=== PATIENT | female | born 1990 | race Caucasian/White ===

== ENCOUNTER 2024-08-26 21:26 | Emergency (ER) | payer SELFPAY ==
[2024-08-26 21:28] VITALS: BP 165/97; PULSE 113; RESP 18; TEMP 36.6; O2SAT 100; BMI 27.1
--- NOTE | 2024-08-26 21:35 | EKG12_ITS ---
Test Reason : EMA Blood Pressure : */* mmHG Vent. Rate : 90 BPM Atrial Rate : 90 BPM P-R Int : 142 ms QRS Dur : 80 ms QT Int : 350 ms P-R-T Axes : 81 68 45 degrees QTcB Int : 428 ms Normal sinus rhythm Normal ECG Confirmed by RADHA MARES, CELESTINE ([id number]), publication editor DONNA HOLLEY ([id number]) on 08/29/2024 6:55:41 AM Referred By: Confirmed By: CELESTINE GARCIA MD
--- NOTE | 2024-08-26 21:52 | RAD_ITS ---
EXAM: XR Chest, 1 View CLINICAL INDICATION: CHEST PAIN TECHNIQUE: Frontal view of the chest. COMPARISON: No relevant prior studies available. FINDINGS: LUNGS AND PLEURAL SPACES: Unremarkable. No consolidation. No pneumothorax. HEART: Unremarkable. No cardiomegaly. MEDIASTINUM: Unremarkable. Normal mediastinal contour. BONES/JOINTS: Unremarkable. No acute fracture. RAD/Chest 1 View (Portable) IMPRESSION: No acute cardiopulmonary process. Reading Location: [id number]
--- NOTE | 2024-08-26 22:05 | EDS_ITS ---
HPI History of Present Illness Chief Complaint: Chest Pain Informant: patient Narrative Narrative: 34-year-old female started having chest discomfort left side, felt like burning, pain, may be acidic maybe 30 or 40 minutes prior to arrival here, lasted for a total of 20 minutes and is now gone, but she also had sharp pains shooting down her left arm for several minutes. 1 when she felt like her heart was pounding not necessarily racing but when she checked her blood pressure on her wrist without feeling presyncopal or near syncopal, she said it was 66/30 and her heart rate was 120. She denies any recent illness. She is not a smoker, she has no cardiac risk factors and has no family members with heart disease that they know of in their 50s or younger. Never had this before. Discomfort is gone right now. She was not exerting herself at the time and she denies any pleuritic component. CVD Risk Factors: Negative for Hypertension, Diabetes, Hypercholesterolemia, Family History 1' </=55 or Smoking [facility] Medical History Marijuana use Ovarian cyst Panic attack Anxiety Home Medications ?Medication ?Instructions ?Recorded ?Last Taken ?Type NK 08/26/24 Unknown History Allergy/AdvReac Type Severity Reaction Status Date / Time prednisone Allergy Intermediate Hives Verified 08/26/24 21:45 Social History Smoking Status: Current some day smoker tobacco type: e-cigarettes ROS ROS ED Constitutional Constitutional ED: Denies chills or fever(s) Eyes Eyes: Denies change in vision or diplopia ENT ENT ED: Denies rhinorrhea or sore throat Cardiovascular Cardiovascular: Reports chest pain and radiating jaw, neck or arm pain; Denies palpitations Respiratory/Chest Respiratory/Chest: Denies cough or dyspnea Gastrointestinal Gastrointestinal: Denies abdominal pain, diarrhea, nausea or vomiting Genitourinary Genitourinary ED: Denies dysuria or hematuria Musculoskeletal Musculoskeletal: Denies back pain or neck pain Integumentary Denies abscess or rash Neurologic Neurologic: Denies headache(s), paresthesias or weakness Psychiatric Psychiatric: Reports anxiety; Denies suicidal thoughts EXAM Physical Exam Const Vital Signs: 08/26/24 21:28 08/26/24 21:43 08/26/24 21:47 Temperature 97.8 F Temperature Source Temporal Pulse Rate 113 H Respiratory Rate 18 Respiratory Pattern Normal Blood Pressure 165/97 H Blood Pressure Mean 119 Pulse Ox 100 Oxygen Delivery Method Room Air Room Air 08/26/24 22:28 08/26/24 23:00 08/26/24 23:30 Temperature Temperature Source Pulse Rate 84 79 71 Respiratory Rate 16 14 15 Respiratory Pattern Blood Pressure 127/81 H 122/67 H Blood Pressure Mean 96 85 Pulse Ox 97 98 100 Oxygen Delivery Method Room Air Room Air 08/26/24 23:45 08/27/24 00:00 Temperature Temperature Source Pulse Rate 81 72 Respiratory Rate 12 12 Respiratory Pattern Blood Pressure 126/72 H Blood Pressure Mean 87 Pulse Ox 98 99 Oxygen Delivery Method Room Air Positive well nourished and well developed General Appearance ED: well developed and NAD HEENT Reports moist mucous membranes normocephalic and atraumatic Eyes PERRL and EOMs intact bilaterally Neck full ROM and supple Resp normal respiratory effort and clear to auscultation bilaterally Cardio regular rate, regular rhythm and no murmurs Rate: Negative for tachycardic Peripheral Pulses: radial pulses present bilateral 2+ GI non-tender and non-distended Auscultation: normoactive bowel sounds Palpation: soft Back/Spine no CVA tenderness General Back: other FROM Extremity normal to inspection Extremity Narrative: No calf tenderness, palpable cords, pedal edema General Extremety ED: Negative for edema, pulses abnormal or tenderness General Extremity: Negative for edema or pulses abnormal Neuro oriented x3, CN's II-XII intact bilaterally and no sensory deficits noted Sensorium / Orientation: awake and alert Motor Exam: strength 5/5 throughout Psych Psych Narrative: A little anxious Skin no rashes or lesions noted and no wounds Heart Score History: Moderately Suspicious ECG: Normal Age: </= 45 years Risk Factors: No Risk Factors Troponin: </= Normal Limit Score: 1 MDM MDM MDM Narrative Medical decision making narrative: EKG is normal, patient is pain-free when it was done. We did 2 sequential troponin measurements, they are both negative/normal for a delta of 0, and her 1 view chest x-ray on my interpretation is normal. Patient remained asymptomatic, normal vital signs 126/72 last check, when she was initially here she was 165/97 which I suspect was probably due to her feeling very anxious and panicky which she admitted to. She is doing very well now she feels much better, I suspect this was probably esophageal in nature which we discussed, if she continues to have episodes I recommend following up with her doctor return to the ER she is comfortable with that plan. Lab Data Attestation: I reviewed the patient's lab results. Labs: Laboratory Results - last 24 hr 08/26/24 08/26/24 21:40 23:39 WBC 8.1 RBC 4.58 Hgb 13.4 Hct 39.3 MCV 85.8 MCH 29.3 MCHC 34.1 RDW Std Deviation 38.5 RDW Coeff of Carlos 12.3 Plt Count 326 MPV 9.8 Immature Gran % (Auto) 0.200 Neut % (Auto) 47.9 Lymph % (Auto) 40.9 [place] % (Auto) 7.9 Eos % (Auto) 2.7 Baso % (Auto) 0.4 Absolute Neuts (auto) 3.9 Absolute Lymphs (auto) 3.33 Nucleated RBC % 0 Sodium 141 Potassium 3.3 Chloride 104 Carbon Dioxide 23.0 Anion Gap 13 BUN 14 Creatinine 0.80 Estim Creat Clear Calc 113.13 Est GFR (MDRD) Non-Af 98 BUN/Creatinine Ratio 16.8 Glucose 95 Calcium 9.3 Troponin T High Sens < 6 Troponin T Hi Sens 2 Hr < 6 Radiography Diagnostic Testing: Clinical Impression(s) from Imaging Studies Chest X-Ray 08/26/24 21:52 IMPRESSION: No acute cardiopulmonary process. Reading Location: [facility] Rhythm Strip Rhythm Strip: Sinus Rhythm Rate: 89 Ectopy: None EKG Initial EKG: Attestation: I personally reviewed and interpreted this EKG as follows: Interpretation: Sinus Rhythm and No Acute Injury Pattern Comments: Nml axis & intervals; nml EKG Discharge Plan Triage Chief Complaint: Chest Pain Other Complaint: Anxiety ED Provider: Varghese Nowak Dx/Rx/DC Orders Clinical Impression: Chest pain, non-cardiac Instructions: ED Chest Pain, Noncardiac Prescriptions: No Action NK Primary Care Provider: Care Physician,No Primary Referrals: Doctor,Your [Non-Staff] - (or return to ER for persistent episode) Print Language: Occitan Disposition Disposition: Home, Self Care
[2024-08-26 22:13] LABS: Absolute Lymphocyte Count 3.33 X10^3/uL (0.83-4.51); Absolute Neutrophil Count 3.9 X10^3/uL (2.0-7.7); Basophil# 0.03 X10^3/uL; Basophil% 0.4 % (0-1); Eosinophil# 0.22 X10^3/uL; Eosinophils% 2.7 % (0-5); Hematocrit 39.3 % (37-47); Hemoglobin 13.4 g/dL (12.0-15.0); Lymphocyte # 3.33 X10^3/ul (0.83-4.51); Lymphocyte % 40.9 % (19-41); Mean Corp Hgb Conc 34.1 g/dL (32-36); Mean Corpuscular Hgb 29.3 pg (27.0-32.0); Mean Corpuscular Volume 85.8 fL (81-99); Mean Platelet Vol. 9.8 fl (6.2-12.0); Monocyte# 0.64 X10^3/uL; Monocyte% 7.9 % (0-10); NRBC Flagged by Analyzer 0 % (0-5); Neutrophil % 47.9 % (47-70); Platelet Count 326 K/mm3 (150-450); RBC Distribution Width CV 12.3 % (11.6-14.6); RBC Distribution Width SD 38.5 fl (35.1-43.9); Red Blood Count 4.58 M/mm3 (4.2-5.4); White Blood Count 8.1 K/mm3 (4.4-11.0)
[2024-08-26 22:28] VITALS: BP 127/81; PULSE 84; RESP 16; O2SAT 97
[2024-08-26 22:37] LABS: Anion Gap 13 (5-15); BUN 14 mg/dL (4-19); BUN/Creat Ratio 16.8 RATIO (10-20); Calcium,Total 9.3 mg/dL (7.6-11.0); Chloride 104 mmol/L (98-108); EST Glomerular Filtration Rate 98 (>60); Estimated Creatinine Clearance 113.13 ml/min (50-250); Glucose 95 mg/dL (70-99); Potassium 3.3 mmol/L (3.3-5.1); Sodium Level 141 mmol/L (133-145); Troponin T High Sensitivity < 6 ng/L (<=14)
[2024-08-26 23:00] VITALS: BP 122/67; PULSE 79; RESP 14; O2SAT 98
[2024-08-26 23:30] VITALS: PULSE 71; RESP 15; O2SAT 100
[2024-08-26 23:45] VITALS: PULSE 81; RESP 12; O2SAT 98
[2024-08-27] VITALS: BP 126/72; PULSE 72; RESP 12; O2SAT 99
[2024-08-27 00:09] LABS: Troponin T High Sens 2 HR < 6 ng/L (<=14)
[2024-08-27 00:41] VITALS: BP 124/72; PULSE 60; RESP 12; TEMP 36.6; O2SAT 100
== END 2024-08-27 00:42 | disposition home or self-care (01) ==
PROVIDERS: Emergency Provider Emergency Medicine; Visit Provider Emergency Medicine
DX: R07.89 Other chest pain (principal); F17.290 Nicotine dependence, other tobacco product, uncomplicated
CPT/HCPCS: 71045; 80048; 84484; 85025; 93005; 99285; A4216

== ENCOUNTER → 2024-09-15 | Outpatient (CLI) | payer OTHER, SELFPAY ==
[2024-09-20 10:08] LABS: HPV APTIMA, High Risk Negative (Negative)
== END | disposition home or self-care (01) ==
LOC: LABSPEC 14:10
PROVIDERS: PCP Nurse Practitioner Family; Visit Provider Nurse Practitioner Family
DX: Z12.4 Encounter for screening for malignant neoplasm of cervix (principal)
CPT/HCPCS: 87624; 88175; G0145

== ENCOUNTER → 2024-10-04 | Outpatient (CLI) | payer OTHER, SELFPAY ==
--- NOTE | 2024-10-04 13:58 | BI_ITS ---
EXAM: DIAG MAMM W/CAD, BILAT 10/04/2024 CLINICAL HISTORY: F, Age 34 y/o , LEFT BREAST TENDERNESS TECHNIQUE: DIAG MAMM W/CAD, BILAT. COMPARISON: Baseline examination. FINDINGS: TISSUE DENSITY: The breasts are heterogeneously dense, which may obscure small masses. Bilateral Breast Mammographic Findings: No significant masses, calcifications or other abnormalities are identified. No suspicious masses, areas of developing architectural distortion, or suspicious calcifications. BI/DIAG MAMM W/CAD, BILAT IMPRESSION: No mammographic abnormality is seen. With the patient's history of pain in the upper inner quadrant of the left breast, targeted ultrasound correlation recommended. OVERALL FINAL ASSESSMENT BI-RADS 0: INCOMPLETE - NEED ADDITIONAL IMAGING EVALUATION. RECOMMENDATION: Ultrasound Recommended A letter with findings and recommendations will be mailed to the patient. Reading Location: [id number]
--- NOTE | 2024-10-04 13:58 | US_ITS ---
PROCEDURE: BREAST LIMITED UNILATERAL N/A REASON FOR EXAM: F, Age 34 y/o , LEFT BREAST TENDERNESS COMPARISON: Prior mammogram done earlier in the day.. TECHNIQUE: BREAST LIMITED UNILATERAL FINDINGS: The upper inner quadrant of the left breast was examined with ultrasound. Homogeneous fibroglandular tissue. No sonographic abnormality is seen. US/Breast Limited Unilateral IMPRESSION: No sonographic abnormality is seen. BI-RADS 1: NEGATIVE RECOMMENDATION: Routine annual follow-up in 1 Year Reading Location: [id number]
--- NOTE | 2024-10-04 13:58 | BI_ITS ---
EXAM: DIAG MAMM W/CAD, BILAT 10/04/2024 CLINICAL HISTORY: F, Age 34 y/o , LEFT BREAST TENDERNESS TECHNIQUE: DIAG MAMM W/CAD, BILAT. COMPARISON: Baseline examination. FINDINGS: TISSUE DENSITY: The breasts are heterogeneously dense, which may obscure small masses. Bilateral Breast Mammographic Findings: No significant masses, calcifications or other abnormalities are identified. No suspicious masses, areas of developing architectural distortion, or suspicious calcifications. BI/DIAG MAMM W/CAD, BILAT IMPRESSION: No mammographic abnormality is seen. With the patient's history of pain in the upper inner quadrant of the left breast, targeted ultrasound correlation recommended. OVERALL FINAL ASSESSMENT BI-RADS 0: INCOMPLETE - NEED ADDITIONAL IMAGING EVALUATION. RECOMMENDATION: Ultrasound Recommended A letter with findings and recommendations will be mailed to the patient. Reading Location: [id number]
--- NOTE | 2024-10-04 13:58 | US_ITS ---
PROCEDURE: BREAST LIMITED UNILATERAL N/A REASON FOR EXAM: F, Age 34 y/o , LEFT BREAST TENDERNESS COMPARISON: Prior mammogram done earlier in the day.. TECHNIQUE: BREAST LIMITED UNILATERAL FINDINGS: The upper inner quadrant of the left breast was examined with ultrasound. Homogeneous fibroglandular tissue. No sonographic abnormality is seen. US/Breast Limited Unilateral IMPRESSION: No sonographic abnormality is seen. BI-RADS 1: NEGATIVE RECOMMENDATION: Routine annual follow-up in 1 Year Reading Location: [id number]
--- OUTSIDE RECORDS SUMMARY | 2024-10-04 21:48 | XMS RPT_ITS | CCD ---
Author Organization [facility] ion Partnership [facility] Care Team Providers Care After School Teacher Name Role Phone Eliu MARES, Dr. Kwong Emergency Provider Care Physician, No Primary Primary Care Provider Unavailable Dr. Varghese Nowak MD Attending Provider Rachel OUTREACH REP-C, Mara Primary Care Provider Rachel OUTREACH REP-C, Mara Attending Provider Mara Ramos Primary Care Unavailable Mara Ramos Attending Unavailable Varghese Nowak Attending Unavailable Care Physician, No Primary Primary Care Unava ilable Mara Ramos Primary Care Unavailable Mara Ramos Attending Unavailable Mara Ramos Referring Unavailable Allergies Allergy Classification Reported Allergen(s) Allergy Type Date of Onset Reaction(s) Facility (2 sources) predniSONE Drug Allergy 08-26-2024 [facility] (1 source) predniSONE Drug Allergy 08-26-2024 [facility] Repository Problems Problem Classification Problem Date Documented Da te Episodic/Chronic Nonmalignant breast conditions (1 source) Mastodynia; Translations: [Mastodynia] Onset: 09-30-2024 Episodic Nonspecific chest pain (3 sources) Non-cardiac chest pain; Translations: [Other chest pain] Onset: 08-31-2024 08-27-2024 Episodic Other screening for suspected conditions (not mental disorders or infectious disease) (1 source) Encounter for screening for malignant neoplasm of cervix; Translations: [Encounter for screening for malignant neoplasm of cervix] Onset: 09-20-2024 Episodic Unclassified (2 sources) or return to ER for persistent episode Results Test Name Value Interpretation Reference Range Facility PAP IG HPV APTIMA 16/18,45on 09-20-2024 ADEQ Comment Normal . [facility] Comment on above: Order Comment: Speci men Comment: [id number] Specimen Comment: No. of containers..01 ThinPrep Vial Result Comment: Sati sfactory for evaluation. Endocervical and/or squamous metaplastic cells (endocervical component) are present. Performed By: #### L 3410.9992, L7400.0280 #### [facility] Laboratory [address] [place], [place], [id number] COMM . Normal . [facility] Comment on above: Order Comment: Speci men Comment: [id number] Specimen Comment: No. of containers..01 ThinPrep Vial Performed By: #### L 3410.9992, L7400.0280 #### [facility] Laboratory [address] [place], [address] COMMENT Comment Normal . [facility] Comment on above: Order Comment: Speci men Comment: [id number] Specimen Comment: No. of containers..01 ThinPrep Vial Result Comment: This liquid based ThinPrep(R) pap test was screened with the use of an image guided system. Performed By: #### L 3410.9992, L7400.0280 #### [facility] Laboratory [address] [place], [address] DIAG Comment Normal . [facility] Comment on above: Order Comment: Speci men Comment: [id number] Specimen Comment: No. of containers..01 ThinPrep Vial Result Comment: NEGA TIVE FOR INTRAEPITHELIAL LESION OR MALIGNANCY. Performed By: #### L 3410.9992, L7400.0280 #### [facility] Laboratory [address] [place], [address] HPV APTIMA, HR Negative Normal Negative [facility] Comment on above: Order Comment: Speci men Comment: [id number] Specimen Comment: No. of containers..01 ThinPrep Vial Result Comment: This nucleic acid amplification test detects fourteen high- risk HPV types (16,18,31,33,35,39,45,51,52,56,58,59,66,68) without differentiation. Performed By: #### L 3410.9992, L7400.0280 #### [facility] Laboratory [address] [place], [place], [address] HPV Alondra Rfx Comment Normal . [facility] Comment on above: Order Comment: Speci men Comment: [id number] Specimen Comment: No. of containers..01 ThinPrep Vial Result Comment: Crit eria not met, HPV Genotype not performed. Performed at: - [facility] [id number] Through Freight Engineer: Elizabeth Sanchez MD, Phone: [phone] Performed at: = - [facility] [id number] Through Freight Engineer: Elizabeth Sanchez MD, Phone: [phone] Performed By: #### L 3410.9992, L7400.0280 #### [facility] Laboratory [address] [place], [address] PAPSMR Comment Normal . [facility] Comment on above: Order Comment: Speci men Comment: [id number] Specimen Comment: No. of containers..01 ThinPrep Vial Result Comment: The Pap smear is a screening test designed to aid in the detection of premalignant and malignant conditions of the uterine cervix. It is not a diagnostic procedure and should not be used as the sole means of detecting cervical cancer. Both false-positive and false-negative reports do occur. Performed By: #### L 3410.9992, L7400.0280 #### [facility] Laboratory [address] [place], [place], [address] PERFORM Comment Normal . [facility] Comment on above: Order Comment: Speci men Comment: [id number] Specimen Comment: No. of containers..01 ThinPrep Vial Result Comment: Abby Nix, Fly Finisher (ASCP) Performed By: #### L 3410.9992, L7400.0280 #### [facility] Laboratory [address] [place], [place], [address] L3410.9992on 09-19-2024 [facility] COMMENT Normal . [facility] Comment on above: Order Comment: BRITANY ORTEZ-RMT [id number] NUAB VG+ Result Comment: Test Ordered: [id number] NuSwab Vaginitis Plus (VG+) Test(s) 489878- Atopobium vaginae; 281712- BVAB 2; 077386- Megasphaera 1 was developed and its performance characteristics determined by [facility]. It has not been cleared or approved by the Food and Drug Administration. Test(s) 869816-Ygghgxv albicans, EDGAR; 565956- Sally glabrata, EDGAR was developed and its performance characteristics determined by [facility]. It has not been cleared or approved by the Food and Drug Administration. Atopobium vaginae Low - 0 Score =G Reference Range: . BVAB 2 Low - 0 Score =G Reference Range: . Megasphaera 1 Low - 0 Score =G Reference Range: . Calculate total score by adding the 3 individual bacterial vaginosis (BV) marker scores together. Total score is interpreted as follows: Total score 0-1: Indicates the absence of BV. Total score 2: Indeterminate for BV. Additional clinical data should be evaluated to establish a diagnosis. Total score 3-6: Indicates the presence of BV. Sally albicans, EDGAR Negative =G Reference Range: Negative Sally glabrata, EDGAR Negative =G Reference Range: Negative Trich vag by EDGAR Negative =G Reference Range: Negative Chlamydia trachomatis, EDGAR Negative =G Reference Range: Negative Neisseria gonorrhoeae, EDGAR Negative =G Reference Range: Negative Performed at: =G - [facility] [id number] Through Freight Engineer: Elizabeth Sanchez MD, Phone: [phone] Performed at: - [facility] [id number] Through Freight Engineer: Liam Lovell PhD, Phone: [phone] Performed By: #### L 3410.9992, L7400.0280 #### [facility] Laboratory [address] [place], [place], [address] Cervical or vaginal specimen microscopic examination by liquid based cytology (reportOrdered By: Mara Ramos on 09-15-2024 Cytology report Cyto stain.thin prep Doc (Cvx/Vag) Comment . [facility] Comment on above: Criteria not met, HP V Genotype not performed.Performed at: - [facility] [id number] Director: Elizabeth Sanchez MD, Phone: [phone] at: = - [facility] [id number] Director: Elizabeth Sanchez MD, Phone: [phone] Cervical or vagninal specime n microscopic examination by cytology stain (reported asOrdered By: Mara Ramos on 09-15-2024 Cytology report Cyto stain Doc (Cvx/Vag) Comment . [facility] Comment on above: The Pap smear is a s creening test designed to aid in thedetection of premalignant and malignant conditions of theuterine cervix. It is not a diagnostic procedure andshould not be used as the sole means of detecting cervicalcancer. Both false-positive and false-negative reports dooccur. Detection in cervical specim en of any of human papilloma virus (HPV) 16, 18, 31, 33,Ordered By: Mara Ramos on 09-15-2024 HPV 16+18+31+33+35+39+45+51+ 52+56+58+59+66+68 DNA Probe+sig amp Ql (Cvx) Negative Negative [facility] Comment on above: This nucleic acid am plification test detects fourteen high-risk HPV types (16,18,31,33,35,39,45,51,52,56,58,59,66,68)without differentiation. Laboratory - CytologyOrdered By: Mara Raoms on 09-15-2024 Fly Finisher Cyto stain Nom (Cvx/Vag) [ID] Comment . [facility] Comment on above: Elza Nix Cytol ogist (ASCP) Laboratory - Miscellaneous t estsOrdered By: Mara Ramos on 09-15-2024 Service comment (Unsp spec) [Interp] . . [facility] No Panel InformationOrdered By: Mara Ramos on 09-15-2024 Pap Smear Specimen Adequacy Comment . [facility] Comment on above: Satisfactory for carlos luation. Endocervical and/or squamous metaplasticcells (endocervical component) are present. L499.0042on 08-27-2024 Trop T High Sen < 6 Normal <=14 [facility] Comment on above: Performed By: #### L 499.0042 #### [facility] Laboratory [address] [place], [address] L499.0043on 08-27-2024 Trop T High Sen Normal <=14 [facility] Comment on above: Result Comment: Canc elled via OM: Order cancelled - Patient discharged Performed By: #### L 499.0043 #### [facility] Laboratory [address] [place], [address] 12 Lead EKGon 08-26-2024 12 Lead EKG [facility] Cardiovascular Services [address] [place] [address] 12 Lead EKG 08/26/24 2147 MR#: [id number] Acct: [id number] Name: ANASTASIIA GUTIERREZ Rep #: [id number] : 1990 34 From: Veronika Garcia MD Attending Dr: Status: DEP ER Ordering Dr: Varghese Nowak MD Date: 08/26/24 Location: ED Sex: F C Admitted: Test Reason : EMA Blood Pressure : */* mmHG Vent. Rate : 90 BPM Atrial Rate : 90 BPM P-R Int : 142 ms QRS Dur : 80 ms QT Int : 350 ms P-R-T Axes : 81 68 45 degrees QTcB Int : 428 ms Normal sinus rhythm Normal ECG Confirmed by RADHA MARES, CELESTINE ([id number]), managing editor DONNA HOLLEY ([id number]) on 08/29/2024 6:55:41 AM Referred By: Confirmed By: CELESTINE GARCIA MD 08/29/24 0655 Date Veronika Garcia MD CC: Dr. Varghese Nowak MD; No Primary Care Physician Signed Normal [facility] Absolute lymphocyte countOrd ered By: Varghese Nowak on 08-26-2024 Lymphocytes Auto (Unsp spec) [#/Vol] 3.33 10*3/uL 0.83-4.51 [facility] Absolute neutrophil countOrd ered By: Varghese Nowak on 08-26-2024 Neutrophils (Bld) [#/Vol] 3.9 10*3/uL 2.0-7.7 [facility] Anion gap in Serum or Plasma Ordered By: Varghese Nowak on 08-26-2024 Anion gap [Moles/Vol] 13 mmol/L - [facility] Automated lymphocyte count a s percentage of total leukocytesOrdered By: Varghese Nowak on 08-26-2024 Lymphocytes/100 WBC Auto (Unsp spec) 40.9 % [facility] BUN/creatinine ratioOrdered By: Varghese Nowak on 08-26-2024 Urea nitrogen/Creatinine [Mass ratio] 16.8 mg/mg - [facility] Basic Metabolic Profile (BMP )on 08-26-2024 BUN/CRE 16.8 RATIO Normal - [facility] Comment on above: Performed By: #### L 100.0100, L500.2500, L501.4021 #### [facility] Laboratory [address] [place], [address] Calcium [Mass/Vol] 9.3 mg/dL Normal 7.6-11.0 [facility] Comment on above: Performed By: #### L 100.0100, L500.2500, L501.4021 #### [facility] Laboratory [address] [place], [address] Chloride [Moles/Vol] 104 mmol/L Normal 98-108 [facility] Comment on above: Performed By: #### L 100.0100, L500.2500, L501.4021 #### [facility] Laboratory [address] [place], [address] CO2 [Moles/Vol] 23.0 mmol/L Normal 21.0-32.0 [facility] Comment on above: Performed By: #### L 100.0100, L500.2500, L501.4021 #### [facility] Laboratory [address] [place], [address] Creatinine [Mass/Vol] 0.80 mg/dL Normal 0.70-1.20 [facility] Comment on above: Performed By: #### L 100.0100, L500.2500, L501.4021 #### [facility] Laboratory [address] [place], [address] ECRCL 113.13 ml/min Normal 50-250 [facility] Comment on above: Performed By: #### L 100.0100, L500.2500, L501.4021 #### [facility] Laboratory [address] [place], [address] GAP 13 Normal 5-15 [facility] Comment on above: Performed By: #### L 100.0100, L500.2500, L501.4021 #### [facility] Laboratory [address] [place], [address] GFR/1.73 sq M.predicted among non-blacks MDRD (S/P/Bld) [Vol rate/Area] 98 mL/min/{1.73_m2} Normal >60 [facility] Comment on above: Result Comment: mL/m in/1.73m2 CKD-EPI Creatinine Equation (2020) Performed By: #### L 100.0100, L500.2500, L501.4021 #### [facility] Laboratory [address] [place], [address] Glucose [Mass/Vol] 95 mg/dL Normal 70-99 [facility] Comment on above: Performed By: #### L 100.0100, L500.2500, L501.4021 #### [facility] Laboratory [address] [place], [address] Potassium [Moles/Vol] 3.3 mmol/L Normal 3.3-5.1 [facility] Comment on above: Performed By: #### L 100.0100, L500.2500, L501.4021 #### [facility] Laboratory [address] [place], [address] Sodium [Moles/Vol] 141 mmol/L Normal 133-145 [facility] Comment on above: Performed By: #### L 100.0100, L500.2500, L501.4021 #### [facility] Laboratory [address] [place], [address] Urea nitrogen [Mass/Vol] 14 mg/dL Normal 4-19 [facility] Comment on above: Performed By: #### L 100.0100, L500.2500, L501.4021 #### [facility] Laboratory [address] [place], [address] Basophil percentageOrdered B y: Varghese Nowak on 08-26-2024 Basophils/100 WBC (Bld) 0.4 % 0-1 [facility] CBC W/Diff, Automatedon Absolute Lymph 3.33 X10 3/uL Normal 0.83-4.51 [facility] Comment on above: Performed By: #### L 100.0100, L500.2500, L501.4021 #### [facility] Laboratory [address] [place], [address] Absolute Neut 3.9 X10 3/uL Normal 2.0-7.7 [facility] Comment on above: Performed By: #### L 100.0100, L500.2500, L501.4021 #### [facility] Laboratory [address] [place], [address] Basophils/100 WBC (Bld) 0.4 % Normal 0-1 [facility] Comment on above: Performed By: #### L 100.0100, L500.2500, L501.4021 #### [facility] Laboratory [address] [place], [address] Eosinophils/100 WBC (Bld) 2.7 % Normal 0-5 [facility] Comment on above: Performed By: #### L 100.0100, L500.2500, L501.4021 #### [facility] Laboratory [address] [place], [address] Erythrocyte distribution width (RBC) [Ratio] 12.3 % Normal 11.6-14.6 [facility] Comment on above: Performed By: #### L 100.0100, L500.2500, L501.4021 #### [facility] Laboratory [address] [place], [address] Hematocrit (Bld) [Volume fraction] 39.3 % Normal 37-47 [facility] Comment on above: Performed By: #### L 100.0100, L500.2500, L501.4021 #### [facility] Laboratory [address] [place], [address] Hemoglobin (Bld) [Mass/Vol] 13.4 g/dL Normal 12.0-15.0 [facility] Comment on above: Performed By: #### L 100.0100, L500.2500, L501.4021 #### [facility] Laboratory [address] [place], [address] IG% 0.200 Normal 0.0-0.9 [facility] Comment on above: Result Comment: IG% - Immature Granulocytes (promyelocytes, myelocytes and metamyelocytes) > 1% indicates that a LEFT SHIFT is Present. Performed By: #### L 100.0100, L500.2500, L501.4021 #### [facility] Laboratory [address] [place], [address] Lymphocytes/100 WBC (Bld) 40.9 % Normal 19-41 [facility] Comment on above: Performed By: #### L 100.0100, L500.2500, L501.4021 #### [facility] Laboratory [address] [place], [address] MCH (RBC) [Entitic mass] 29.3 pg Normal 27.0-32.0 [facility] Comment on above: Performed By: #### L 100.0100, L500.2500, L501.4021 #### [facility] Laboratory [address] [place], [address] MCHC (RBC) [Mass/Vol] 34.1 g/dL Normal 32-36 [facility] Comment on above: Performed By: #### L 100.0100, L500.2500, L501.4021 #### [facility] Laboratory [address] [place], [address] MCV (RBC) [Entitic vol] 85.8 fL Normal 81-99 [facility] Comment on above: Performed By: #### L 100.0100, L500.2500, L501.4021 #### [facility] Laboratory [address] [place], [address] Monocytes/100 WBC (Bld) 7.9 % Normal 0-10 [facility] Comment on above: Performed By: #### L 100.0100, L500.2500, L501.4021 #### [facility] Laboratory [address] [place], [address] Neutrophils/100 WBC (Bld) 47.9 % Normal 47-70 [facility] Comment on above: Performed By: #### L 100.0100, L500.2500, L501.4021 #### [facility] Laboratory [address] [place], [address] Nucleated RBC (Bld) [#/Vol] 0 10*3/uL Normal 0-5 [facility] Comment on above: Performed By: #### L 100.0100, L500.2500, L501.4021 #### [facility] Laboratory [address] [place], [address] Platelet mean volume (Bld) [Entitic vol] 9.8 fL Normal 6.2-12.0 [facility] Comment on above: Performed By: #### L 100.0100, L500.2500, L501.4021 #### [facility] Laboratory [address] [place], [address] Platelets (Bld) [#/Vol] 326 10*3/uL Normal 150-450 [facility] Comment on above: Performed By: #### L 100.0100, L500.2500, L501.4021 #### [facility] Laboratory [address] [place], [address] RBC (Bld) [#/Vol] 4.58 10*6/uL Normal 4.2-5.4 [facility] Comment on above: Performed By: #### L 100.0100, L500.2500, L501.4021 #### [facility] Laboratory [address] [place], [address] RDW SD 38.5 fl Normal 35.1-43.9 [facility] Comment on above: Performed By: #### L 100.0100, L500.2500, L501.4021 #### [facility] Laboratory [address] [place], [address] WBC (Bld) [#/Vol] 8.1 10*3/uL Normal 4.4-11.0 [facility] Comment on above: Performed By: #### L 100.0100, L500.2500, L501.4021 #### [facility] Laboratory [address] [place], [address] Carbon dioxide, total [Moles /volume] in Central venous bloodOrdered By: Varghese Nowak on 08-26-2024 CO2 [Moles/Vol] 23.0 mmol/L 21.0-32.0 [facility] Chest 1 View (Portable)on Chest 1 View (Portable) [facility] Imaging Services [address] [place] [address] Chest 1 View (Portable) MR#: [id number] Acct: [id number] Name: ANASTASIIA GUTIERREZ Rep #: [id number] : 1990 F 34 From: Lewis Castellano MD PCP: NOT,DEFINED Status: PRE ER Study: Chest 1 View (Portable) Date of Exam: 08/26/24 Exam# [id number] Ordering Dr: Varghese Nowak MD EXAM: XR Chest, 1 View CLINICAL INDICATION: CHEST PAIN TECHNIQUE: Frontal view of the chest. COMPARISON: No relevant prior studies available. FINDINGS: LUNGS AND PLEURAL SPACES: Unremarkable. No consolidation. No pneumothorax. HEART: Unremarkable. No cardiomegaly. MEDIASTINUM: Unremarkable. Normal mediastinal contour. BONES/JOINTS: Unremarkable. No acute fracture. RAD/Chest 1 View (Portable) IMPRESSION: No acute cardiopulmonary process. Reading Location: [facility] ER CC: DEFINED NOT; Dr. 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 Normal [facility] Chloride assayOrdered By: Dalila Nowak on 08-26-2024 Chloride [Moles/Vol] 104 mmol/L 98-108 [facility] Emergency Department Summary on 08-26-2024 Emergency Department Summary [facility] Medical Records Department [address] [place] [address] Emergency Department Summary 08/26/24 MR#: [id number] Acct: [id number] Name: ANASTASIIA GUTIERREZ Rep #: [id number] : 1990 34 From: Varghese Nowak MD PCP: Care Physician,No Primary Status:REG ER Location: ED HPI History of Present Illness Chief Complaint: Chest Pain Informant: patient Narrative Narrative: 34-year-old female started having chest discomfort left side, felt like burning, pain, may be acidic maybe 30 or 40 minutes prior to arrival here, lasted for a total of 20 minutes and is now gone, but she also had sharp pains shooting down her left arm for several minutes. 1 when she felt like her heart was pounding not necessarily racing but when she checked her blood pressure on her wrist without feeling presyncopal or near syncopal, she said it was 66/30 and her heart rate was 120. She denies any recent illness. She is not a smoker, she has no cardiac risk factors and has no family members with heart disease that they know of in their 50s or younger. Never had this before. Discomfort is gone right now. She was not exerting herself at the time and she denies any pleuritic component. CVD Risk Factors: Negative for Hypertension, Diabetes, Hypercholesterolemia , Family History 1' or Smoking [facility] Medical History Marijuana use Ovarian cyst Panic attack Anxiety Home Medications ???Medication ???Instructions ???Recorded ???Last Taken ???Type NK 08/26/24 Unknown History Allergy/AdvReac Type Severity Reaction Status Date / Time prednisone Allergy Intermediate Hives Verified 08/26/24 21:45 Social History Smoking Status: Current some day smoker tobacco type: e-cigarettes ROS ROS ED Constitutional Constitutional ED: Denies chills or fever(s) Eyes Eyes: Denies change in vision or diplopia ENT ENT ED: Denies rhinorrhea or sore throat Cardiovascular Cardiovascular: Reports chest pain and radiating jaw, neck or arm pain; Denies palpitations Respiratory/Chest Respiratory/Chest: Denies cough or dyspnea Gastrointestinal Gastrointestinal: Denies abdominal pain, diarrhea, nausea or vomiting Genitourinary Genitourinary ED: Denies dysuria or hematuria Musculoskeletal Musculoskeletal: Denies back pain or neck pain Integumentary Denies abscess or rash Neurologic Neurologic: Denies headache(s), paresthesias or weakness Psychiatric Psychiatric: Reports anxiety; Denies suicidal thoughts EXAM Physical Exam Const Vital Signs: 08/26/24 21:28 08/26/24 21:43 08/26/24 21:47 Temperature 97.8 F Temperature Source Temporal Pulse Rate 113 H Respiratory Rate 18 Respiratory Pattern Normal Blood Pressure 165/97 H Blood Pressure Mean 119 Pulse Ox 100 Oxygen Delivery Method Room Air Room Air 08/26/24 22:28 08/26/24 23:00 08/26/24 23:30 Temperature Temperature Source Pulse Rate 84 79 71 Respiratory Rate 16 14 15 Respiratory Pattern Blood Pressure 127/81 H 122/67 H Blood Pressure Mean 96 85 Pulse Ox 97 98 100 Oxygen Delivery Method Room Air Room Air 08/26/24 23:45 08/27/24 00:00 Temperature Temperature Source Pulse Rate 81 72 Respiratory Rate 12 12 Respiratory Pattern Blood Pressure 126/72 H Blood Pressure Mean 87 Pulse Ox 98 99 Oxygen Delivery Method Room Air Positive well nourished and well developed General Appearance ED: well developed and NAD HEENT Reports moist mucous membranes normocephalic and atraumatic Eyes PERRL and EOMs intact bilaterally Neck full ROM and supple Resp normal respiratory effort and clear to auscultation bilaterally Cardio regular rate, regular rhythm and no murmurs Rate: Negative for tachycardic Peripheral Pulses: radial pulses present bilateral 2+ GI non-tender and non-distended Auscultation: normoactive bowel sounds Palpation: soft Back/Spine no CVA tenderness General Back: other FROM Extremity normal to inspection Extremity Narrative: No calf tenderness, palpable cords, pedal edema General Extremety ED: Negative for edema, pulses abnormal or tenderness General Extremity: Negative for edema or pulses abnormal Neuro oriented x3, CN's II-XII intact bilaterally and no sensory deficits noted Sensorium / Orientation: awake and alert Motor Exam: strength 5/5 throughout Psych Psych Narrative: A little anxious Skin no rashes or lesions noted and no wounds Heart Score History: Moderately Suspicious ECG: Normal Age: Risk Factors: No Risk Factors Troponin: Score: 1 MDM MDM MDM Narrative Medical decision making narrative: EKG is normal, patient is p (more content not included)... Normal [facility] Eosinophil percentageOrdered By: Varghese Nowak on 08-26-2024 Eosinophils/100 WBC (Bld) 2.7 % 0-5 [facility] Erythrocyte distribution wid th ratioOrdered By: Varghese Nowak on 08-26-2024 Erythrocyte distribution width (RBC) [Ratio] 12.3 % 11.6-14.6 [facility] Erythrocyte distribution wid th standard deviationOrdered By: Varghese Nowak on 08-26-2024 Erythrocyte distribution width (RBC) [Ratio] 38.5 fl 35.1-43.9 [facility] Glomerular filtration rate ( GFR) estimation/1.73 sq m using serum, plasma, or whole bOrdered By: Varghese Nowak on 08-26-2024 GFR/1.73 sq M.predicted among non-blacks MDRD (S/P/Bld) [Vol rate/Area] 98 mL/min/{1.73_m2} >60 [facility] Comment on above: mL/min/1.73m2 CKD-EP I Creatinine Equation (2020) Hematocrit Auto (Bld) [Volum e fraction]Ordered By: Varghese Nowak on 08-26-2024 Hematocrit (Bld) [Volume fraction] 39.3 % 37-47 [facility] Hemoglobin measurementOrdere d By: Varghese Nowak on 08-26-2024 Hemoglobin (Bld) [Mass/Vol] 13.4 g/dL 12.0-15.0 [facility] Immature granulocytes/100 WB C Auto (Bld)Ordered By: Varghese Nowak on 08-26-2024 Immature granulocytes/100 WBC (Bld) 0.200 % 0.0-0.9 [facility] Comment on above: IG% - Immature Granu locytes (promyelocytes, myelocytes and metamyelocytes) > 1% indicates that a LEFT SHIFT is Present. L501.4021on 08-26-2024 Trop T High Sen < 6 Normal <=14 [facility] Comment on above: Performed By: #### L 100.0100, L500.2500, L501.4021 #### [facility] Laboratory [address] [place], [address] MCV (mean corpuscular volume ) determinationOrdered By: Varghese Nowak on 08-26-2024 MCV (RBC) [Entitic vol] 85.8 fL 81-99 [facility] Mean corpuscular hemoglobin (MCH) determinationOrdered By: Varghese Nowak on 08-26-2024 MCH (RBC) [Entitic mass] 29.3 pg 27.0-32.0 [facility] Mean corpuscular hemoglobin concentration (MCHC) determinationOrdered By: Varghese Nowak on 08-26-2024 MCHC (RBC) [Mass/Vol] 34.1 g/dL 32-36 [facility] Mean platelet volume determi nationOrdered By: Varghese Nowak on 08-26-2024 Platelet mean volume (Bld) [Entitic vol] 9.8 fL 6.2-12.0 [facility] Monocyte percentageOrdered B y: Varghese Nowak on 08-26-2024 Monocytes/100 WBC (Bld) 7.9 % 0-10 [facility] Neutrophil percentageOrdered By: Varghese Nowak on 08-26-2024 Neutrophils/100 WBC (Bld) 47.9 % 47-70 [facility] Nucleated red blood cell per centageOrdered By: Varghese Nowak on 08-26-2024 Nucleated RBC/100 WBC (Bld) [Ratio] 0 % 0-5 [facility] Platelet countOrdered By: Dalila Nowak on 08-26-2024 Platelets (Bld) [#/Vol] 326 10*3/uL 150-450 [facility] Potassium measurement (mass/ volume)Ordered By: Varghese Nowak on 08-26-2024 Potassium (Unsp spec) [Mass/Vol] 3.3 mmol/L 3.3-5.1 [facility] RBC Auto (Bld) [#/Vol]Ordere d By: Varghese Nowak on 08-26-2024 RBC (Bld) [#/Vol] 4.58 10*6/uL 4.2-5.4 [facility] Serum creatinine measurement (mass/volume)Ordered By: Varghese Nowak on 08-26-2024 Creatinine [Mass/Vol] 0.80 mg/dL 0.70-1.20 [facility] Serum glucose measurement (m ass/volume)Ordered By: Varghese Nowak on 08-26-2024 Glucose [Mass/Vol] 95 mg/dL 70-99 [facility] Serum or plasma calcium humberto urement (mass/volume)Ordered By: Varghese Nowak on 08-26-2024 Calcium [Mass/Vol] 9.3 mg/dL 7.6-11.0 [facility] Serum or plasma urea nitroge n measurement (mass/volume)Ordered By: Varghese Nowak on 08-26-2024 Urea nitrogen [Mass/Vol] 14 mg/dL 4-19 [facility] Sodium levelOrdered By: David Nowak on 08-26-2024 Sodium [Moles/Vol] 141 mmol/L 133-145 [facility] Troponin T.cardiac [Mass/vol ume] in Serum or Plasma by High sensitivity methodOrdered By: Varghese Nowak on 08-26-2024 Troponin T.cardiac High sensitivity method [Mass/Vol] < 6 ng/L <14 [facility] Troponin T.cardiac High sensitivity method [Mass/Vol] < 6 ng/L <14 [facility] White blood cell (WBC) count Ordered By: Varghese Nowak on 08-26-2024 WBC (Bld) [#/Vol] 8.1 10*3/uL 4.4-11.0 [facility] Vital Signs Date Time Vital Sign Value Performing Clinician Faci lity 08-27-2024 00:41-0400 Body temperature 98 [degF] Dr. Varghese Nowak MD Work Phone: [facility] 08-27-2024 00:41-0400 Diastolic blood pressure 72 mm[Hg] Dr. Varghese Nowak MD Work Phone: [facility] 08-27-2024 00:41-0400 Heart rate 60 /min Dr. Varghese Nowak MD Work Phone: [facility] 08-27-2024 00:41-0400 Respiratory rate 12 /min Dr. Varghese Nowak MD Work Phone: [facility] 08-27-2024 00:41-0400 SaO2% (BldA) [Mass fraction] 100 % Dr. Varghese Nowak MD Work Phone: [facility] 08-27-2024 00:41-0400 Systolic blood pressure 124 mm[Hg] Dr. Varghese Nowak MD Work Phone: [facility] 08-26-2024 21:28-0400 Body height 175.[address] Varghese Nowak MD Work Phone: [facility] 08-26-2024 21:28-0400 Body mass index (BMI) [Ratio] 27.1 kg/m2 Dr. Varghese Nowak MD Work Phone: [facility] 08-26-2024 21:28-0400 Body weight 83.[address] Varghese Nowak MD Work Phone: [facility] Encounters Encounter Date Encounter Type Care Provider Facility Start: 10-04-2024 ambulatory [facility] Facility :[facility] Start: 09-15-2024 End: 09-15-[address] Varghese Nowak MD Work Phone: -Laboratory Specimen Start: 09-15-2024 End: 09-15-2024 Patient encounter procedure Mara Rachel OUTREACH REP-C -Laboratory Specimen Work Phone: Start: 09-15-2024 End: 09-15-2024 ambulatory [facility] Facility:[facility] Start: 08-26-2024 End: 08-27-2024 Emergency department patient visit Dr. Varghese Nowak MD Work Phone: -Emergency Department Work Phone: Procedures Date Procedure Procedure Detail Performing Clinician Start: 09-15-2024 Liquid based cervical cytology screening Dr. Varghese Nowak MD Work Phone: Comment on above: NEGATIVE FOR INTRAEPITHELIAL LESION OR M ALIGNANCY. This liquid based Th inPrep(R) pap test was screened withthe use of an image guided system. Start: 09-15-[address] Varghese Nowak MD Work Phone: Comment on above: Test Ordered: [id number] NuSwab Vaginitis Pl us (VG+)Test(s) 816678- Atopobium vaginae; 851681- BVAB 2;543572- Megasphaera 1was developed and its performance characteristicsdetermined by [facility]. It has not been cleared or approvedby the Food and Drug Administration.Test(s) 266242-Qwpnkdc albicans, EDGAR; 119365-Gvimuud glabrata, NAAwas developed and its performance characteristicsdetermined by [facility]. It has not been cleared or approvedby the Food and Drug Administration. Atopobium vaginae Low - 0 Score =G Reference Range: . BVAB 2 Low - 0 Score =G Reference Range: . Megasphaera 1 Low - 0 Score =G Reference Range: .Calculate total score by adding the 3 individual bacterialvaginosis (BV) marker scores together. Total score isinterpreted as follows:Total score 0-1: Indicates the absence of BV.Total score 2: Indeterminate for BV. Additional clinical data should be evaluated to establish a diagnosis.Total score 3-6: Indicates the presence of BV.Sally albicans, EDGAR Negative =G Reference Range: NegativeCandida glabrata, EDGAR Negative =G Reference Range: NegativeTrich vag by EDGAR Negative =G Reference Range: NegativeChlamydia trachomatis, EDGAR Negative =G Reference Range: NegativeNeisseria gonorrhoeae, EDGAR Negative =G Reference Range: NegativePerformed at: = - [facility] [id number] Director: Elizabeth Sanchez MD, Phone: [phone] at: [address] [id number] Director: Liam Lovell PhD, Phone: [phone] Start: 08-26-2024 Plain chest X-ray Dr. Varghese Nowak MD Work Phone: Start: 08-26-[address] Yasmine Nowak MD Work Phone: Plan of Treatment Date Care Activity Detail Author Start: 08-27-2024 [facility] Start: 08-26-2024 End: 08-26-2024 [facility] Patient Education ED Chest Pain, Noncardi ac [facility] Work Phone: Patient referral [facility] Work Phone: Payers Date Payer Category Payer Unknown [id number] 2024 Self-pay Unknown [id number] Unknown [id number] Unknown [id number] Social History Date Type Detail Facility Start: 08-26-2024 Tobacco smoking stat us CTIS Current some day smoker [facility] Start: 1990 Sex Assigned At Female [facility] Mental Status Date Assessment Result Facility 08-26-2024 Cognitive function Voice/Name [facility] Work Phone: Discharge summary 08-27-2024 Note Date & Type Note Facility 08-27-2024 Discharge summary [facility] Radiology Diagnostic study note 08-26-2024 Note Date & Type Note Facility 08-26-2024 Radiology Diagnostic study note [facility] Imaging Services [address] [place], [place] [address] Chest 1 View (Portable) MR#: [id number] Acct: [id number] Name: ANASTASIIA GUTIERREZ Rep #: [id number] : 1990 F 34 From: Karen Castellano MD PCP: NOT,DEFINED Status: PRE ER Study:Chest 1 View (Portable) Date of Exam: 08/26/24 Exam# [id number] Ordering Dr: Joe Nowak MD EXAM: XR Chest, 1 View CLINICAL INDICATION: CHEST PAIN TECHNIQUE: Frontal view of the chest. COMPARISON: No relevant prior studies available. FINDINGS: LUNGS AND PLEURAL SPACES: Unremarkable. No consolidation. No pneumothorax. HEART: Unremarkable. No cardiomegaly. MEDIASTINUM: Unremarkable. Normal mediastinal contour. BONES/JOINTS: Unremarkable. No acute fracture. RAD/Chest 1 View (Portable) IMPRESSION: No acute cardiopulmonary process. Reading Location: [facility] CC: DEFINED NOT; Dr. 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 [facility] Discharge summary 08-26-2024 Note Date & Type Note Facility 08-26-2024 Discharge summary Note Date/Time August 27, 2024 12:26am [facility] Medical Records Department [address] [place] [address] Emergency Department Summary 08/26/24 MR#: [id number] Acct: [id number] Name: ANASTASIIA GUTIERREZ Rep #:[id number] : 1990 34 From: Varghese Nowak MD PCP: Care Physician,No Primary Status :REG ER Location: ED HPI History of Present Illness Chief Complaint: Chest Pain Informant: patient Narrative Narrative: 34-year-old female started having chest discomfort left side, felt like burning,pain, may be acidic maybe 30 or 40 minutes prior to arrival here, lasted for atotal of 20 minutes and is now gone, but she also had sharp pains shooting down her left arm for several minutes. 1 when she felt like her heart was pounding not necessarily racing but when she checked her blood pressure on her wrist without feeling presyncopal or near syncopal, she said it was 66/30 and her heart rate was 120. She denies any recent illness. She is not a smoker, she has no cardiac risk factors and has no family members with heart disease that they know of in their 50s or younger. Never had this before. Discomfort is gone right now. She was not exerting herself at the time and she denies any pleuritic component. CVD Risk Factors: Negative for Hypertension, Diabetes, Hypercholesterolemia, Family History 1' </=55 or Smoking [facility] Medical History Marijuana use Ovarian cyst Panic attack Anxiety Home Medications ?Medication ?Instructions ?Recorded ?Last Taken ?Type NK 08/26/24 Unknown History Allergy/AdvReac Type Severity Reaction Status Date / Time prednisone Allergy Intermediate Hives Verified 08/26/24 21:45 Social History Smoking Status: Current some day smoker tobacco type: e-cigarettes ROS ROS ED Constitutional Constitutional ED: Denies chills or fever(s) Eyes Eyes: Denies change in vision or diplopia ENT ENT ED: Denies rhinorrhea or sore throat Cardiovascular Cardiovascular: Reports chest pain and radiating jaw, neck or arm pain; Denies palpitations Respiratory/Chest Respiratory/Chest: Denies cough or dyspnea Gastrointestinal Gastrointestinal: Denies abdominal pain, diarrhea, nausea or vomiting Genitourinary Genitourinary ED: Denies dysuria or hematuria Musculoskeletal Musculoskeletal: Denies back pain or neck pain Integumentary Denies abscess or rash Neurologic Neurologic: Denies headache(s), paresthesias or weakness Psychiatric Psychiatric: Reports anxiety; Denies suicidal thoughts EXAM Physical Exam Const Vital Signs: 08/26/24 21:28 08/26/24 21:43 08/26/24 21:47 Temperature 97.8 F Temperature Source Temporal Pulse Rate 113 H Respiratory Rate 18 Respiratory Pattern Normal Blood Pressure 165/97 H Blood Pressure Mean 119 Pulse Ox 100 Oxygen Delivery Method Room Air Room Air 08/26/24 22:28 08/26/24 23:00 08/26/24 23:30 Temperature Temperature Source Pulse Rate 84 79 71 Respiratory Rate 16 14 15 Respiratory Pattern Blood Pressure 127/81 H 122/67 H Blood Pressure Mean 96 85 Pulse Ox 97 98 100 Oxygen Delivery Method Room Air Room Air 08/26/24 23:45 08/27/24 00:00 Temperature Temperature Source Pulse Rate 81 72 Respiratory Rate 12 12 Respiratory Pattern Blood Pressure 126/72 H Blood Pressure Mean 87 Pulse Ox 98 99 Oxygen Delivery Method Room Air Positive well nourished and well developed General Appearance ED: well developed and NAD HEENT Reports moist mucous membranes normocephalic and atraumatic Eyes PERRL and EOMs intact bilaterally Neck full ROM and supple Resp normal respiratory effort and clear to auscultation bilaterally Cardio regular rate, regular rhythm and no murmurs Rate: Negative for tachycardic Peripheral Pulses: radial pulses present bilateral 2+ GI non-tender and non-distended Auscultation: normoactive bowel sounds Palpation: soft Back/Spine no CVA tenderness General Back: other FROM Extremity normal to inspection Extremity Narrative: No calf tenderness, palpable cords, pedal edema General Extremety ED: Negative for edema, pulses abnormal or tenderness General Extremity: Negative for edema or pulses abnormal Neuro oriented x3, CN's II-XII intact bilaterally and no sensory deficits noted Sensorium / Orientation: awake and alert Motor Exam: strength 5/5 throughout Psych Psych Narrative: A little anxious Skin no rashes or lesions noted and no wounds Heart Score History: Moderately Suspicious ECG: Normal Age: </= 45 years Risk Factors: No Risk Factors Troponin: </= Normal Limit Score: 1 MDM MDM MDM Narrative Medical decision making narrative: EKG is normal, patient is pain-free when it was done. We did 2 sequential troponin measurements, they are both negative/normal for a delta of 0, and her 1view chest x-ray on my interpretation is normal. Patient remained asymptomatic,normal vital signs 126/72 last check, when she was initially here she was 165/97which I suspect was probably due to her feeling very anxious and panicky which she admitted to. She is doing very well now she feels much better, I suspect this was probably esophageal in nature which we discussed, if she continues to have episodes I recommend following up with her doctor return to the ER she is comfortable with that plan. Lab Data Attestation: I reviewed the patient's lab results. Labs: Laboratory Results - last 24 hr 08/26/24 08/26/24 21:40 23:39 WBC 8.1 RBC 4.58 Hgb 13.4 Hct 39.3 MCV 85.8 MCH 29.3 MCHC 34.1 RDW Std Deviation 38.5 RDW Coeff of Carlos 12.3 Plt Count 326 MPV 9.8 Immature Gran % (Auto) 0.200 Neut % (Auto) 47.9 Lymph % (Auto) 40.9 [place] % (Auto) 7.9 Eos % (Auto) 2.7 Baso % (Auto) 0.4 Absolute Neuts (auto) 3.9 Absolute Lymphs (auto) 3.33 Nucleated RBC % 0 Sodium 141 Potassium 3.3 Chloride 104 Carbon Dioxide 23.0 Anion Gap 13 BUN 14 Creatinine 0.80 Estim Creat Clear Calc 113.13 Est GFR (MDRD) Non-Af 98 BUN/Creatinine Ratio 16.8 Glucose 95 Calcium 9.3 Troponin T High Sens < 6 Troponin T Hi Sens 2 Hr < 6 Radiography Diagnostic Testing: Clinical Impression(s) from Imaging Studies Chest X-Ray 08/26/24 21:52 IMPRESSION: No acute cardiopulmonary process. Reading Location: [facility] ER Rhythm Strip Rhythm Strip: Sinus Rhythm Rate: 89 Ectopy: None EKG Initial EKG: Attestation: I personally reviewed and interpreted this EKG as follows: Interpretation: Sinus Rhythm and No Acute Injury Pattern Comments: Nml axis & intervals; nml EKG Discharge Plan Triage Chief Complaint: Chest Pain Other Complaint: Anxiety ED Provider: Varghese Nowak Dx/Rx/DC Orders Clinical Impression: Chest pain, non-cardiac Instructions: ED Chest Pain, Noncardiac Prescriptions: No Action NK Primary Care Provider: Care Physician,No Primary Referrals: Doctor,Your [Non-Staff] - (or return to ER for persistent episode) Print Language: Qatari Disposition Disposition: Home, Self Care What to do if you have Problems For any increased pain, shortness of breath, bleeding, nausea or vomiting, chestpain, or any unexpected problems, contact your Primary Care Provider. Call [facility] ([phone]) or report to the closest Emergency Room. Call 911 if necessary. 08/27/24 0026 <Electronically signed by Varghese Nowak MD> Cosigner Signature (if applicable): CC: No Primary Care Physician ~ Signed [facility] Work Phone: Evaluation note Note Date & Type Note Facility Evaluation note No assessment information availa ble [facility] Work Phone: Chief Complaint and Reason for Visit Chief Complaint Admit Date CHEST PAIN August 26, 2024 9:26p m Advance Directives No Advanced Directives Records Found Advance Directive Response Recorded Date/ Time Do you have a Healthcare Power of Prism Inspector? No August 26, 2024 9:46pm Summary Purpose Family History No Family History Records Found Additional Source Comments Care Teams (unrecognized sec tion and content) Team Status: Active Member Role Status Dates No Primary Care Physician Primary Care Provider Active Team Status: Inactive Member Role Status Dates Dr. Varghese Nowak MD Emergency Provider Active Start: August 26, 2024 End: August 27, 2024 No Primary Care Physician Primary Care Provider Active Start: August 26, 2024 End: August 27, 2024 Team Status: Active Member Role/Relationship Status Dates LUCY Lott Primary Care Provider Active Team Status: Inactive Member Role/Relationship Status Dates Dr. Varghese Nowak MD Attending Provider Active Start: August 26, 2024 End: August 27, 2024 Dr. Varghese Nowak MD Emergency Provider Active Start: August 26, 2024 End: August 27, 2024 No Primary Care Physician Primary Care Provider Active Start: August 26, 2024 End: August 27, 2024 Team Status: Inactive Member Role/Relationship Status Dates LUCY Lott Primary Care Provider Active Start: September 15, 2024 End: September 15, 2024 LUCY Lott Attending Provider Active Start: September 15, 2024 End: September 15, 2024 Goals (unrecognized section and content) Goals may be documented in a n alternate sectionGoals may be documented in an alternate section INFORMATION SOURCE (unrecogn ized section and content) DATE CREATED AUTHOR 10/01/2024 [facility] FOR RECORDS PERTAINING TO PATIENTS WHO ARE OR HAVE BEEN ENROLLED IN A CHEMICAL DEPENDENCY/SUBSTANCEABUSE PROGRAM, SOME INFORMATION MAY BE OMITTED. This clinical summary was aggregated from multiple sources. Caution should be exercised in using it in the provision of clinical care. This summary normalizes information from multiple sources, and as a consequence, information in this document may materially change the coding, format and clinical context of patient data. In addition, data may be omitted in some cases. CLINICAL DECISIONS SHOULD BE BASED ON THE PRIMARY CLINICAL RECORDS. [facility]. provides no warranty or guarantee of the accuracy or completeness of information in this document.
--- OUTSIDE RECORDS SUMMARY | 2024-10-04 21:48 | XMS RPT_ITS | CCD ---
Author Organization [facility] ion Partnership [facility] Care Team Providers Care Starch And Prosize Mixer Name Role Phone lEiu MARES, Dr. Kwong Emergency Provider Care Physician, No Primary Primary Care Provider Unavailable Dr. Varghese Nowak MD Attending Provider Rachel MASTER WELDER-C, Mara Primary Care Provider Rachel MASTER WELDER-C, Mara Attending Provider Mara Ramos Primary Care Unavailable Mara Ramos Attending Unavailable Varghese Nowak Attending Unavailable Care Physician, No Primary Primary Care Unava ilable Mara Ramos Primary Care Unavailable Mara Ramos Attending Unavailable Mara Ramos Referring Unavailable Allergies Allergy Classification Reported Allergen(s) Allergy Type Date of Onset Reaction(s) Facility (2 sources) predniSONE Drug Allergy 08-26-2024 [facility] (1 source) predniSONE Drug Allergy 08-26-2024 [facility] Repository Problems Problem Classification Problem [...] APTIMA 16/18,45on 09-20-2024 ADEQ Comment Normal . [facility] Comment on above: Order Comment: Speci men Comment: [id number] Specimen Comment: No. of containers..01 ThinPrep Vial Result Comment: Sati sfactory for evaluation. Endocervical and/or squamous metaplastic cells (endocervical component) are present. Performed By: #### L 3410.9992, L7400.0280 #### [facility] Laboratory [address] [place], [place], [address] COMM . Normal . [facility] Comment on above: Order Comment: Speci men Comment: [id number] Specimen Comment: No. of containers..01 ThinPrep Vial Performed By: #### L 3410.9992, L7400.0280 #### [facility] Laboratory [address] [place], [address] COMMENT Comment Normal . [facility] Comment on above: Order Comment: Speci men Comment: [id number] Specimen Comment: No. of containers..01 ThinPrep Vial Result Comment: This liquid based ThinPrep(R) pap test was screened with the use of an image guided system. Performed By: #### L 3410.9992, L7400.0280 #### [facility] Laboratory [address] [place], [address] DIAG Comment Normal . [facility] Comment on above: Order Comment: Speci men Comment: [id number] Specimen Comment: No. of containers..01 ThinPrep Vial Result Comment: NEGA TIVE FOR INTRAEPITHELIAL LESION OR MALIGNANCY. Performed By: #### L 3410.9992, L7400.0280 #### [facility] Laboratory [address] [place], [address] HPV APTIMA, HR Negative Normal Negative [facility] Comment on above: Order Comment: Speci men Comment: [id number] Specimen Comment: No. of containers..01 ThinPrep Vial Result Comment: This nucleic acid amplification test detects fourteen high- risk HPV types (16,18,31,33,35,39,45,51,52,56,58,59,66,68) without differentiation. Performed By: #### L 3410.9992, L7400.0280 #### [facility] Laboratory [address] [place], [place], [address] HPV Alondra Rfx Comment Normal . [facility] Comment on above: Order Comment: Speci men Comment: [id number] Specimen Comment: No. of containers..01 ThinPrep Vial Result Comment: Crit eria not met, HPV Genotype not performed. Performed at: - [facility] [id number] Bronc Buster: Elizabeth Sanchez MD, Phone: [phone] Performed at: = - [facility] [id number] Bronc Buster: Elizabeth Sanchez MD, Phone: [phone] Performed By: #### L 3410.9992, L7400.0280 #### [facility] [address] [place], [address] PAPSMR Comment Normal . [facility] Comment on above: Order Comment: Speci men Comment: [id number] Specimen Comment: No. of containers..01 ThinPrep Vial [...] Performed By: #### L 3410.9992, L7400.0280 #### [facility] Laboratory [address] [place], [place], [address] PERFORM Comment Normal . [facility] Comment on above: Order Comment: Speci men Comment: [id number] Specimen Comment: No. of containers..01 ThinPrep Vial Result Comment: Abby Nix, Care Provider (ASCP) Performed By: #### L 3410.9992, L7400.0280 #### [facility] Laboratory [address] [place], [place], [address] L3410.9992on 09-19-20[facility] COM[facility] Normal . [facility] Comment on above: Order Comment: BRITANY ORTEZ-RMT [id number] NUAB VG+ Result Comment: Test Ordered: [id number] NuSwab Vaginitis Plus (VG+) Test(s) 383908- Atopobium vaginae; 355143- BVAB 2; 966877- Megasphaera 1 was developed and its performance characteristics determined by [facility]. It has not been cleared or approved by the Food and Drug Administration. Test(s) 880406-Ovdxknj albicans, EDGAR; 044691- Sally glabrata, EDGAR was developed and its [...] Indicates the presence of BV. Sally albicans, EDGRA Negative =G Reference Range: Negative Sally glabrata, EDGAR Negative =G Reference Range: Negative Trich vag by EDGAR Negative =G Reference Range: Negative Chlamydia trachomatis, EDGAR Negative =G Reference Range: Negative Neisseria gonorrhoeae, EDGAR Negative =G Reference Range: Negative Performed at: =G - [facility] [id number] Bronc Buster: Elizabeth Sanchez MD, Phone: [phone] Performed at: - [facility] [id number] Bronc Buster: Liam Lovell PhD, Phone: [phone] Performed By: #### L 3410.9992, L7400.0280 #### [facility] [address] [place], [place], [address] Cervical or vaginal specimen microscopic examination by liquid based cytology (reportOrdered By: Mara Ramos on 09-15-2024 Cytology report Cyto stain.thin prep Doc (Cvx/Vag) Comment . [facility] Comment on above: Criteria not met, HP V Genotype not performed.Performed at: - [facility] [id number] Director: Elizabeth Sanchez MD, Phone: [phone] at: = - [facility] [id number] Director: Elizabeth Sanchez MD, Phone: [phone] Cervical or vagninal specime n microscopic examination by cytology stain (reported asOrdered By: Mara Ramos on 09-15-2024 Cytology report Cyto stain Doc (Cvx/Vag) Comment . [facility] Comment on above: The Pap [...] DNA Probe+sig amp Ql (Cvx) Negative Negative [facility] Comment on above: This nucleic acid am plification test detects fourteen high-risk HPV types (16,18,31,33,35,39,45,51,52,56,58,59,66,68)without differentiation. Laboratory - CytologyOrdered By: Mara Ramos on 09-15-2024 Care Provider Cyto stain Nom (Cvx/Vag) [ID] Comment . [facility] Comment on above: Elza Nix Cytol ogist (ASCP) Laboratory - Miscellaneous t estsOrdered By: Mara Ramos on 09-15-2024 Service comment (Unsp spec) [Interp] . . [facility] No Panel InformationOrdered By: Mara Ramos on 09-15-2024 Pap Smear Specimen Adequacy Comment . [facility] Comment on above: Satisfactory for carlos luation. Endocervical and/or squamous metaplasticcells (endocervical component) are present. L499.0042on 08-27-2024 Trop T High Sen < 6 Normal <=14 [facility] Comment on above: Performed By: #### L 499.0042 #### [facility] Laboratory [address] [place], [address] L499.0043on 08-27-2024 Trop T High Sen Normal <=14 [facility] Comment on above: Result Comment: Canc elled via OM: Order cancelled - Patient discharged Performed By: #### L 499.0043 #### [facility] Laboratory [address] [place], [address] 12 Lead EKGon 08-26-2024 12 Lead EKG [facility] Cardiovascular Services [address] [place] [address] 12 Lead EKG 08/26/24 2147 MR#: [id number] Acct: [id number] Name: ANASTASIIA GUTIERREZ Rep #: [id number] : 1990 34 From: Veronika Garcia MD [...] ECG Confirmed by RADHA MARES, CELESTINE ([id number]), communications editor DONNA HOLLEY ([id number]) on 08/29/2024 6:55:41 AM Referred By: Confirmed By: CELESTINE GARCIA MD 08/29/24 0655 Date Veronika Garcia MD CC: Dr. Varghese Nowak MD; No Primary Care Physician Signed Normal [facility] Absolute lymphocyte countOrd ered By: Varghese Nowak on 08-26-2024 Lymphocytes Auto (Unsp spec) [#/Vol] 3.33 10*3/uL 0.83-4.51 [facility] Absolute neutrophil countOrd ered By: Varghese Nowak on 08-26-2024 Neutrophils (Bld) [#/Vol] 3.9 10*3/uL 2.0-7.7 [facility] Anion gap in Serum or Plasma Ordered By: Varghese Nowak on 08-26-2024 Anion gap [Moles/Vol] 13 mmol/L - [facility] Automated lymphocyte count a s percentage of total leukocytesOrdered By: Varghese Nowak on 08-26-2024 Lymphocytes/100 WBC Auto (Unsp spec) 40.9 % [facility] BUN/creatinine ratioOrdered By: Varghese Nowak on 08-26-2024 Urea nitrogen/Creatinine [Mass ratio] 16.8 mg/mg - [facility] Basic Metabolic Profile (BMP )on 08-26-2024 BUN/CRE 16.8 RATIO Normal - [facility] Comment on above: Performed By: #### L 100.0100, L500.2500, L501.4021 #### [facility] Laboratory [address] [place], [address] Calcium [Mass/Vol] 9.3 mg/dL Normal 7.6-11.0 [facility] Comment on above: Performed By: #### L 100.0100, L500.2500, L501.4021 #### [facility] Laboratory [address] [place], [address] Chloride [Moles/Vol] 104 mmol/L Normal 98-108 [facility] Comment on above: Performed By: #### L 100.0100, L500.2500, L501.4021 #### [facility] Laboratory [address] [place], [address] CO2 [Moles/Vol] 23.0 mmol/L Normal 21.0-32.0 [facility] Comment on above: Performed By: #### L 100.0100, L500.2500, L501.4021 #### [facility] Laboratory [address] [place], [address] Creatinine [Mass/Vol] 0.80 mg/dL Normal 0.70-1.20 [facility] Comment on above: Performed By: #### L 100.0100, L500.2500, L501.4021 #### [facility] Laboratory [address] [place], [address] ECRCL 113.13 ml/min Normal 50-250 [facility] Comment on above: Performed By: #### L 100.0100, L500.2500, L501.4021 #### [facility] Laboratory [address] [place], [address] GAP 13 Normal 5-15 [facility] Comment on above: Performed By: #### L 100.0100, L500.2500, L501.4021 #### [facility] Laboratory [address] [place], [address] GFR/1.73 sq M.predicted among non-blacks MDRD (S/P/Bld) [Vol rate/Area] 98 mL/min/{1.73_m2} Normal >60 [facility] Comment on above: Result Comment: mL/m in/1.73m2 CKD-EPI Creatinine Equation (2020) Performed By: #### L 100.0100, L500.2500, L501.4021 #### [facility] Laboratory [address] [place], [address] Glucose [Mass/Vol] 95 mg/dL Normal 70-99 [facility] Comment on above: Performed By: #### L 100.0100, L500.2500, L501.4021 #### [facility] Laboratory [address] [place], [address] Potassium [Moles/Vol] 3.3 mmol/L Normal 3.3-5.1 [facility] Comment on above: Performed By: #### L 100.0100, L500.2500, L501.4021 #### [facility] Laboratory [address] [place], [address] Sodium [Moles/Vol] 141 mmol/L Normal 133-145 [facility] Comment on above: Performed By: #### L 100.0100, L500.2500, L501.4021 #### [facility] Laboratory [address] [place], [address] Urea nitrogen [Mass/Vol] 14 mg/dL Normal 4-19 [facility] Comment on above: Performed By: #### L 100.0100, L500.2500, L501.4021 #### [facility] Laboratory [address] [place], [address] Basophil percentageOrdered B y: Varghese Nowak on 08-26-2024 Basophils/100 WBC (Bld) 0.4 % 0-1 [facility] CBC W/Diff, Automatedon Absolute Lymph 3.33 X10 3/uL Normal 0.83-4.51 [facility] Comment on above: Performed By: #### L 100.0100, L500.2500, L501.4021 #### [facility] Laboratory [address] [place], [address] Absolute Neut 3.9 X10 3/uL Normal 2.0-7.7 [facility] Comment on above: Performed By: #### L 100.0100, L500.2500, L501.4021 #### [facility] Laboratory [address] [place], [address] Basophils/100 WBC (Bld) 0.4 % Normal 0-1 [facility] Comment on above: Performed By: #### L 100.0100, L500.2500, L501.4021 #### [facility] Laboratory [address] [place], [address] Eosinophils/100 WBC (Bld) 2.7 % Normal 0-5 [facility] Comment on above: Performed By: #### L 100.0100, L500.2500, L501.4021 #### [facility] Laboratory [address] [place], [address] Erythrocyte distribution width (RBC) [Ratio] 12.3 % Normal 11.6-14.6 [facility] Comment on above: Performed By: #### L 100.0100, L500.2500, L501.4021 #### [facility] Laboratory [address] [place], [address] Hematocrit (Bld) [Volume fraction] 39.3 % Normal 37-47 [facility] Comment on above: Performed By: #### L 100.0100, L500.2500, L501.4021 #### [facility] Laboratory [address] [place], [address] Hemoglobin (Bld) [Mass/Vol] 13.4 g/dL Normal 12.0-15.0 [facility] Comment on above: Performed By: #### L 100.0100, L500.2500, L501.4021 #### [facility] Laboratory [address] [place], [address] IG% 0.200 Normal 0.0-0.9 [facility] Comment on above: Result Comment: IG% - Immature Granulocytes (promyelocytes, myelocytes and metamyelocytes) > 1% indicates that a LEFT SHIFT is Present. Performed By: #### L 100.0100, L500.2500, L501.4021 #### [facility] Laboratory [address] [place], [address] Lymphocytes/100 WBC (Bld) 40.9 % Normal 19-41 [facility] Comment on above: Performed By: #### L 100.0100, L500.2500, L501.4021 #### [facility] Laboratory [address] [place], [address] MCH (RBC) [Entitic mass] 29.3 pg Normal 27.0-32.0 [facility] Comment on above: Performed By: #### L 100.0100, L500.2500, L501.4021 #### [facility] Laboratory [address] [place], [address] MCHC (RBC) [Mass/Vol] 34.1 g/dL Normal 32-36 [facility] Comment on above: Performed By: #### L 100.0100, L500.2500, L501.4021 #### [facility] Laboratory [address] [place], [address] MCV (RBC) [Entitic vol] 85.8 fL Normal 81-99 [facility] Comment on above: Performed By: #### L 100.0100, L500.2500, L501.4021 #### [facility] Laboratory [address] [place], [address] Monocytes/100 WBC (Bld) 7.9 % Normal 0-10 [facility] Comment on above: Performed By: #### L 100.0100, L500.2500, L501.4021 #### [facility] Laboratory [address] [place], [address] Neutrophils/100 WBC (Bld) 47.9 % Normal 47-70 [facility] Comment on above: Performed By: #### L 100.0100, L500.2500, L501.4021 #### [facility] Laboratory [address] [place], [address] Nucleated RBC (Bld) [#/Vol] 0 10*3/uL Normal 0-5 [facility] Comment on above: Performed By: #### L 100.0100, L500.2500, L501.4021 #### [facility] Laboratory [address] [place], [address] Platelet mean volume (Bld) [Entitic vol] 9.8 fL Normal 6.2-12.0 [facility] Comment on above: Performed By: #### L 100.0100, L500.2500, L501.4021 #### [facility] Laboratory [address] [place], [address] Platelets (Bld) [#/Vol] 326 10*3/uL Normal 150-450 [facility] Comment on above: Performed By: #### L 100.0100, L500.2500, L501.4021 #### [facility] Laboratory [address] [place], [address] RBC (Bld) [#/Vol] 4.58 10*6/uL Normal 4.2-5.4 [facility] Comment on above: Performed By: #### L 100.0100, L500.2500, L501.4021 #### [facility] Laboratory [address] [place], [address] RDW SD 38.5 fl Normal 35.1-43.9 [facility] Comment on above: Performed By: #### L 100.0100, L500.2500, L501.4021 #### [facility] Laboratory [address] [place], [address] WBC (Bld) [#/Vol] 8.1 10*3/uL Normal 4.4-11.0 [facility] Comment on above: Performed By: #### L 100.0100, L500.2500, L501.4021 #### [facility] Laboratory [address] [place], [address] Carbon dioxide, total [Moles /volume] in Central venous bloodOrdered By: Varghese Nowak on 08-26-2024 CO2 [Moles/Vol] 23.0 mmol/L 21.0-32.0 [facility] Chest 1 View (Portable)on Chest 1 View (Portable) [facility] Imaging Services [address] [place] [address] Chest 1 View (Portable) MR#: [id number] Acct: [id number] Name: ANASTASIIA GUTIERREZ Rep #: [id number] : 1990 F 34 From: Lewis Castellano MD PCP: NOT,DEFINED Status: PRE ER Study: Chest 1 View (Portable) Date of Exam: 08/26/24 Exam# [id number] Ordering Dr: Varghese Nowak MD EXAM: XR Chest, 1 View CLINICAL INDICATION: CHEST PAIN TECHNIQUE: Frontal view of the chest. COMPARISON: No relevant prior studies available. FINDINGS: LUNGS AND PLEURAL SPACES: Unremarkable. No consolidation. No pneumothorax. HEART: Unremarkable. No cardiomegaly. MEDIASTINUM: Unremarkable. Normal mediastinal contour. BONES/JOINTS: Unremarkable. No acute fracture. RAD/Chest 1 View (Portable) IMPRESSION: No acute cardiopulmonary process. Reading [facility] CC: DEFINED NOT; Dr. Varghese Nowak MD Grant Administrator: Signed Normal [facility] Chloride assayOrdered By: Dalila Nowak on 08-26-2024 Chloride [Moles/Vol] 104 mmol/L 98-108 [facility] Emergency Department Summary on 08-26-2024 Emergency Department Summary [facility] Medical Records Department [address] [place] [address] Emergency Department Summary 08/26/24 MR#: [id number] Acct: [id number] Name: ANASTASIIA GUTIERREZ Rep #: [id number] : 1990 34 From: Varghese Nowak MD [...] Hypercholesterolemia , Family History 1' or Smoking [facility] Medical History Marijuana use Ovarian cyst Panic [...] is p (more content not included)... Normal [facility] Eosinophil percentageOrdered By: Varghese Nowak on 08-26-2024 Eosinophils/100 WBC (Bld) 2.7 % 0-5 [facility] Erythrocyte distribution wid th ratioOrdered By: Varghese Nowak on 08-26-2024 Erythrocyte distribution width (RBC) [Ratio] 12.3 % 11.6-14.6 [facility] Erythrocyte distribution wid th standard deviationOrdered By: Varghese Nowak on 08-26-2024 Erythrocyte distribution width (RBC) [Ratio] 38.5 fl 35.1-43.9 [facility] Glomerular filtration rate ( GFR) estimation/1.73 sq m using serum, plasma, or whole bOrdered By: Varghese Nowak on 08-26-2024 GFR/1.73 sq M.predicted among non-blacks MDRD (S/P/Bld) [Vol rate/Area] 98 mL/min/{1.73_m2} >60 [facility] Comment on above: mL/min/1.73m2 CKD-EP I Creatinine Equation (2020) Hematocrit Auto (Bld) [Volum e fraction]Ordered By: Varghese Nowak on 08-26-2024 Hematocrit (Bld) [Volume fraction] 39.3 % 37-47 [facility] Hemoglobin measurementOrdere d By: Varghese Nowak on 08-26-2024 Hemoglobin (Bld) [Mass/Vol] 13.4 g/dL 12.0-15.0 [facility] Immature granulocytes/100 WB C Auto (Bld)Ordered By: Varghese Nowak on 08-26-2024 Immature granulocytes/100 WBC (Bld) 0.200 % 0.0-0.9 [facility] Comment on above: IG% - Immature Granu locytes (promyelocytes, myelocytes and metamyelocytes) > 1% indicates that a LEFT SHIFT is Present. L501.4021on 08-26-2024 Trop T High Sen < 6 Normal <=14 [facility] Comment on above: Performed By: #### L 100.0100, L500.2500, L501.4021 #### [facility] Laboratory [address] [place], [address] MCV (mean corpuscular volume ) determinationOrdered By: Varghese Nowak on 08-26-2024 MCV (RBC) [Entitic vol] 85.8 fL 81-99 [facility] Mean corpuscular hemoglobin (MCH) determinationOrdered By: Varghese Nowak on 08-26-2024 MCH (RBC) [Entitic mass] 29.3 pg 27.0-32.0 [facility] Mean corpuscular hemoglobin concentration (MCHC) determinationOrdered By: Varghese Nowak on 08-26-2024 MCHC (RBC) [Mass/Vol] 34.1 g/dL 32-36 [facility] Mean platelet volume determi nationOrdered By: Varghese Nowak on 08-26-2024 Platelet mean volume (Bld) [Entitic vol] 9.8 fL 6.2-12.0 [facility] Monocyte percentageOrdered B y: Varghese Nowak on 08-26-2024 Monocytes/100 WBC (Bld) 7.9 % 0-10 [facility] Neutrophil percentageOrdered By: Varghese Nowak on 08-26-2024 Neutrophils/100 WBC (Bld) 47.9 % 47-70 [facility] Nucleated red blood cell per centageOrdered By: Varghese Nowak on 08-26-2024 Nucleated RBC/100 WBC (Bld) [Ratio] 0 % 0-5 [facility] Platelet countOrdered By: Dalila Nowak on 08-26-2024 Platelets (Bld) [#/Vol] 326 10*3/uL 150-450 [facility] Potassium measurement (mass/ volume)Ordered By: Varghese Nowak on 08-26-2024 Potassium (Unsp spec) [Mass/Vol] 3.3 mmol/L 3.3-5.1 [facility] RBC Auto (Bld) [#/Vol]Ordere d By: Varghese Nowak on 08-26-2024 RBC (Bld) [#/Vol] 4.58 10*6/uL 4.2-5.4 [facility] Serum creatinine measurement (mass/volume)Ordered By: Varghese Nowak on 08-26-2024 Creatinine [Mass/Vol] 0.80 mg/dL 0.70-1.20 [facility] Serum glucose measurement (m ass/volume)Ordered By: Varghese Nowak on 08-26-2024 Glucose [Mass/Vol] 95 mg/dL 70-99 [facility] Serum or plasma calcium humberto urement (mass/volume)Ordered By: Varghese Nowak on 08-26-2024 Calcium [Mass/Vol] 9.3 mg/dL 7.6-11.0 [facility] Serum or plasma urea nitroge n measurement (mass/volume)Ordered By: Varghese Nowak on 08-26-2024 Urea nitrogen [Mass/Vol] 14 mg/dL 4-19 [facility] Sodium levelOrdered By: David Nowak on 08-26-2024 Sodium [Moles/Vol] 141 mmol/L 133-145 [facility] Troponin T.cardiac [Mass/vol ume] in Serum or Plasma by High sensitivity methodOrdered By: Varghese Nowak on 08-26-2024 Troponin T.cardiac High sensitivity method [Mass/Vol] < 6 ng/L <14 [facility] Troponin T.cardiac High sensitivity method [Mass/Vol] < 6 ng/L <14 [facility] White blood cell (WBC) count Ordered By: Varghese Nowak on 08-26-2024 WBC (Bld) [#/Vol] 8.1 10*3/uL 4.4-11.0 [facility] Vital Signs Date Time Vital Sign Value Performing Clinician Faci lity 08-27-2024 00:41-0400 Body temperature 98 [degF] Dr. Varghese Nowak MD Work Phone: [facility] 08-27-2024 00:41-0400 Diastolic blood pressure 72 mm[Hg] Dr. Varghese Nowak MD Work Phone: [facility] 08-27-2024 00:41-0400 Heart rate 60 /min Dr. Varghese Nowak MD Work Phone: [facility] 08-27-2024 00:41-0400 Respiratory rate 12 /min Dr. Varghese Nowak MD Work Phone: [facility] 08-27-2024 00:41-0400 SaO2% (BldA) [Mass fraction] 100 % Dr. Varghese Nowak MD Work Phone: [facility] 08-27-2024 00:41-0400 Systolic blood pressure 124 mm[Hg] Dr. Varghese Nowak MD Work Phone: [facility] 08-26-2024 21:28-0400 Body height 175.[address] Varghese Nowak MD Work Phone: [facility] 08-26-2024 21:28-0400 Body mass index (BMI) [Ratio] 27.1 kg/m2 Dr. Varghese Nowak MD Work Phone: [facility] 08-26-2024 21:28-0400 Body weight 83.[address] Varghese Nowak MD Work Phone: [facility] Encounters Encounter Date Encounter Type Care Provider Facility Start: 10-04-2024 ambulatory [facility] Facility :[facility] Start: 09-15-2024 End: 09-15-[address] Varghese Nowak MD Work Phone: -Laboratory Specimen Start: 09-15-2024 End: 09-15-2024 Patient encounter procedure Mara Rachel [facility] -Laboratory Specimen Work Phone: Start: 09-15-2024 End: 09-15-2024 ambulatory [facility] Facility:[facility] Start: 08-26-2024 End: 08-27-2024 Emergency [...] Ordered: [id number] NuSwab Vaginitis Pl us (VG+)Test(s) 827754- Atopobium vaginae; 118811- BVAB 2;871193- Megasphaera 1was developed and its performance characteristicsdetermined by [facility]. It has not been cleared or approvedby the Food and Drug Administration.Test(s) 064453-Zkyvtul albicans, EDGAR; 837511-Uwcbrsf glabrata, NAAwas developed and its performance characteristicsdetermined [...] =G Reference Range: NegativePerformed at: = - [facility] [id number] Director: Elizabeth Sanchez MD, Phone: [phone] at: [address] [id number] Director: Liam Lovell PhD, Phone: [phone] Start: 08-26-2024 Plain chest X-ray Dr. Varghese Nowak MD Work Phone: Start: 08-26-[address] Yasmine Nowak MD Work Phone: Plan of Treatment Date Care Activity Detail Author Start: 08-27-2024 [facility] Start: 08-26-2024 End: 08-26-2024 [facility] Patient Education ED Chest Pain, Noncardi ac [facility] Work Phone: Patient referral [facility] Work Phone: Payers Date Payer Category Payer Unknown [id number] 2024 Self-pay Unknown [id number] Unknown [id number] Unknown [id number] Social History Date Type Detail Facility Start: 08-26-2024 Tobacco smoking stat us VTIS Current some day smoker [facility] Start: 1990 Sex Assigned At Female [facility] Mental Status Date Assessment Result Facility 08-26-2024 Cognitive function Voice/Name [facility] Work Phone: Discharge summary 08-27-2024 Note Date & Type Note Facility 08-27-2024 Discharge summary [facility] Radiology Diagnostic study note 08-26-2024 Note Date & Type Note Facility 08-26-2024 Radiology Diagnostic study note [facility] Imaging Services [address] [place], [place] [address] Chest 1 View (Portable) MR#: [id number] Acct: [id number] Name: ANASTASIIA GUTIERREZ Rep #: [id number] : 1990 F 34 From: Karen Castellano MD PCP: NOT,DEFINED Status: PRE ER Study:Chest 1 View (Portable) Date of Exam: 08/26/24 Exam# [id number] Ordering Dr: Joe Nowak MD EXAM: XR Chest, 1 View CLINICAL INDICATION: CHEST PAIN TECHNIQUE: Frontal view of the chest. COMPARISON: No relevant prior studies available. FINDINGS: LUNGS AND PLEURAL SPACES: Unremarkable. No consolidation. No pneumothorax. HEART: Unremarkable. No cardiomegaly. MEDIASTINUM: Unremarkable. Normal mediastinal contour. BONES/JOINTS: Unremarkable. No acute fracture. RAD/Chest 1 View (Portable) IMPRESSION: No acute cardiopulmonary process. Reading Location: [facility] CC: DEFINED NOT; Dr. Varghese Nowak MD ~ Grant Administrator: Signed [facility] Discharge summary 08-26-2024 Note Date & Type Note Facility 08-26-2024 Discharge summary Note Date/Time August 27, 2024 12:26am [facility] Medical Records Department [address] [place] [address] Emergency Department Summary 08/26/24 MR#: [id number] Acct: [id number] Name: ANASTASIIA GUTIERREZ Rep #:[id number] : 1990 34 From: Varghese Nowak MD [...] Hypercholesterolemia, Family History 1' </=55 or Smoking [facility] Medical History Marijuana use Ovarian cyst Panic [...] % (Auto) 47.9 Lymph % (Auto) 40.9 [place] % (Auto) 7.9 Eos % (Auto) 2.7 [...] No acute cardiopulmonary process. Reading Location: [facility] Rhythm Strip Rhythm Strip: Sinus Rhythm Rate: [...] to ER for persistent episode) Print Language: Armenian Disposition Disposition: Home, Self Care What to do if you have Problems For any increased pain, shortness of breath, bleeding, nausea or vomiting, chestpain, or any unexpected problems, contact your Primary Care Provider. Call [facility] ([phone]) or report to the closest Emergency Room. Call 911 if necessary. 08/27/24 0026 <Electronically signed by Varghese Nowak MD> Cosigner Signature (if applicable): CC: No Primary Care Physician ~ Signed [facility] Work Phone: Evaluation note Note Date & Type Note Facility Evaluation note No assessment information availa ble [facility] Work Phone: Chief Complaint and Reason for Visit Chief Complaint Admit Date CHEST PAIN August 26, 2024 9:26p m Advance Directives No Advanced Directives Records Found Advance Directive Response Recorded Date/ Time Do you have a Healthcare Power of Modular Set Crew Member? No August 26, 2024 9:46pm Summary Purpose [...] section and content) DATE CREATED AUTHOR 10/01/2024 [facility] FOR RECORDS PERTAINING TO PATIENTS WHO ARE [...] BE BASED ON THE PRIMARY CLINICAL RECORDS. [employer] [facility]. provides no warranty or guarantee of the accuracy or completeness of information in this document.
== END | disposition home or self-care (01) ==
PROVIDERS: PCP Nurse Practitioner Family; Referring Provider Nurse Practitioner Family; Visit Provider Nurse Practitioner Family
DX: N64.4 Mastodynia (principal)
CPT/HCPCS: 76642; 77062; 77066; G0279